=== PATIENT | female | born 1970 | race Caucasian/White ===

== ENCOUNTER 2018-05-29 19:59 | Emergency (ER) | payer SELFPAY ==
[~2018-05-29] VITALS: Ht 157.5 cm; Wt 79.4 kg
[2018-05-29 20:01] VITALS: Ht 157.5 cm; Wt 79.4 kg
[2018-05-29 22:10] VITALS: BP 112/74
== END 2018-05-29 22:10 | disposition home or self-care (01) ==
LOC: ED 19:59
DX: G44.209 Tension-type headache, unspecified, not intractable (principal); R42 Dizziness and giddiness
CPT/HCPCS: J1885